=== PATIENT | female | born 2005 | race Caucasian/White ===

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

== ENCOUNTER 2024-01-15 09:34 | Outpatient (CLI) | payer OTHER, SELFPAY ==
--- NOTE | 2024-01-15 09:43 | CA_ITS ---
APPROVED REPORT EXAM: Comprehensive 2D, Doppler, and color-flow Echocardiogram Implementation Director: Cierra Ramirez RDCS Ht: 5 ft 2 in Wt: 195lbs BSA: 1.89 BP: 128/71 mmHg Indications: PALPS,DIZZINESS,SOA 2D Dimensions Left Atrium 2.79 cm F: 2.7 - 3.8 EF AP4 61.00 % LVOT 1.83 cm (M/F) 1.5-2.5 GL Strain -24.6 % M-Mode Dimensions RVDd 1.07 cm (0.9-2.6) LVDd 5.56 cm (3.5-5.7) Ao Diam 2.32 cm (2.0-3.7) LVDs 3.83 cm (3.5-5.7) IVSd 0.75 cm (0.6-1.1) PWd 0.88 cm (0.6-1.1) EF (Teich) 58.30% FS 31.10% EDV (Teich) 151.20 mL ESV (Teich) 63.10 mL LV Diastology E Decel Time 203 (160-240 msec) E/A Ratio 1.5 MED E' 12.4 (>= 7 cm/sec) E'/MED E' Ratio 7.14 (<= 14) LAT E' 13.4 (>= 10 cm/sec) E/LAT E' Ratio 6.60 (<= 14) Mitral Valve MV E Max Mono. 88.0 (40-130 cm/s) MV A Velocity 58.0 (40-130 cm/s) E/A Ratio 1.52 MV Decel. Time 203 (160-240 ms) Left Ventricle The left ventricle is normal size. The left ventricular systolic function is normal. The left ventricular ejection fraction is within the normal range. There is normal left ventricular wall thickness. There is normal LV segmental wall motion. The left ventricular diastolic function is normal. LVEF is 55%. Right Ventricle The right ventricle is normal size. The right ventricular systolic function is normal. Atria The left atrium size is normal. The right atrium size is normal. There is no Doppler evidence of interatrial shunt. Aortic Valve The aortic valve opens well. There is no aortic valvular stenosis. No aortic regurgitation is present. Mitral Valve The mitral valve is normal in structure. No evidence of mitral valve stenosis. There is no mitral valve regurgitation noted. Tricuspid Valve Tricuspid valve is grossly normal in structure and function. Trace tricuspid regurgitation. There is insufficient TR jet to estimate RVSP. Pulmonic Valve The pulmonary valve is normal in structure. Trace pulmonic regurgitation. Great Vessels The aortic root is normal in size. The ascending aorta is not well visualized. IVC is normal in size and collapses >50% with inspiration. Pericardium There is no pericardial effusion. Other Information Study Quality: Adequate Conclusion Normal biventricular systolic function. No significant valvular stenosis or regurgitation. Electronically signed by : Elli Tobin MD 01/18/2024 12:28:23
== END 2024-01-15 23:59 | disposition home or self-care (01) ==
LOC: RT 09:35
PROVIDERS: PCP Nurse Practitioner Family; Visit Provider Nurse Practitioner Family
DX: R00.2 Palpitations (principal); R42 Dizziness and giddiness; R06.09 Other forms of dyspnea
CPT/HCPCS: 93270; 93272; 93306

== ENCOUNTER 2024-12-17 11:44 | Outpatient (CLI) | payer OTHER, SELFPAY ==
--- OUTSIDE RECORDS SUMMARY | 2024-12-17 11:46 | XMS_ITS | Clinical Summary ---
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 20 Palpitations 02/06/2020 Generalized anxiety disorder 06/27/2018 Mild depression 06/27/2018 Family History Medical History Relation Name Comments Anxiety disorder Father Lung cancer Paternal Grandfather Relation Name Status Comments Father Paternal Grandfather Social History Tobacco Use Types Packs/Day Years Used Date Smoking Tobacco: Passive Smo ke Exposure - Never Smoker Comments Unknown Sex and Gender Information Value Date Recorded Sex Assigned at Not on file Legal Sex Female 8:53 PM EDT Gender Identity Not on file Sexual Orientation Not on file Last Filed Vital Signs Vital Sign Reading Time Taken Comments Blood Pressure 102/68 02/12/2020 3:25 PM EDT Pulse 56 02/12/2020 3:25 PM EDT Temperature 36.8 C (98.2 F) 07/25/2018 3:01 PM EDT Respiratory Rate 24 02/12/2020 3:25 PM EDT Oxygen Saturation - - Inhaled Oxygen Concentration - - Weight 74.1 kg (163 lb 5.8 oz) 02/12/2020 3:25 P M EDT Height 158.3 cm (5' 2.32 ) 02/12/2020 3:25 PM ED T Body Mass Index 29.57 02/12/2020 3:25 PM EDT Plan of Treatment Health Maintenance Due Date Last Done Comments [facility]-Depression Screening 2004 [facility]-Infant/Child/Adol SDOH Screenings 2004 HPV Vaccines (1 - 3-dose series) 2019 [facility]- SDOH Screenings 2022 [facility]-Adult SDOH Screenings 2022 [facility]-Hepatitis B Vaccines (1 of 3 - 19+ 3-dose series) 2023 [id number] Vaccine (3 - 2023-25 season) 2024 01/05/2021, 12/15/2020 [facility]-Influenza Vaccine (#1) 2025 [facility]-DTaP,Tdap,and Td Vaccines (2 - Td or Tdap) 11/19/2025 11/20/2015 [facility]-Zoster Vaccines (1 of 2) 2054, 05/16/2005 [facility]-Varicella Vaccines Completed 9, 05/16/2005 [facility]-Hepatitis A Vaccines Completed 019, 11/17/2017 [facility]-HIB Vaccines Aged Out No longer e ligible based on patient's age to complete this topic [facility]-IPV Vaccines Aged Out No longer e ligible based on patient's age to complete this topic [facility]-Pneumococcal Vaccine: Pediatrics (0 to 5 Years) and At-Risk Patients (6 to 49 Years) Aged Out No longer eligible b ased on patient's age to complete this topic [facility]-Rotavirus Vaccines Aged Out No lo nger eligible based on patient's age to complete this topic Insurance [facility] Care Teams Yard Worker Relationship Specialty Start Date End Date Radha Barrera, INFORMATICS NURSE [address] [facility] [address] [place] [address] PCP - General 03/17/22
== END 2024-12-17 23:59 | disposition home or self-care (01) ==
LOC: LAB 11:45
PROVIDERS: PCP Nurse Practitioner Family; Visit Provider Nurse Practitioner Family
DX: Z00.00 Encounter for general adult medical examination without abnormal findings (principal); R53.81 Other malaise; R00.2 Palpitations

== ENCOUNTER 2024-12-18 09:27 | Outpatient (CLI) | payer OTHER, SELFPAY ==
--- OUTSIDE RECORDS SUMMARY | 2024-12-18 09:34 | XMS_ITS | Clinical Summary ---
Author Organization Healthcare Address [address] [place] [address] Care Team Providers Care Presiding Judge Name Role Phone Radha Barrera WOOD BORING MACHINE OPERATOR Primary Care Provider [phone] Active Problems Problem Noted Date Diagnosed Date [...] of 3 - 19+ 3-dose series) 2023 [id number] Vaccine (3 - 2023-25 season) 2024 01/05/2021, [...] patient's age to complete this topic Insurance [facility] Care Teams Presiding Judge Relationship Specialty Start Date End Date Radha Barrera, WOOD BORING MACHINE OPERATOR [address] [facility] [address] [place] [address] PCP - General 03/17/22
[2024-12-18 10:07] LABS: Hematocrit 40.2 % (37.0-47.0); Hemoglobin 13.3 g/dL (12.2-16.2); Immature Granulocytes % 0.2 %; Mean Corpuscular HGB Conc 33.1 g/dL (31.8-35.4); Mean Corpuscular Hemoglobin 29.1 pg (27.0-31.2); Mean Corpuscular Volume 88.0 fl (81-99); Nucleated Red Blood Cells % 0 %; Platelet Count 345 K/mm3 (142-424); Red Blood Count 4.57 M/mm3 (4.20-5.40); Red Cell Distribution Width-SD 38.4 fL; White Blood Count 8.7 K/mm3 (4.5-13.0)
[2024-12-18 10:48] LABS: Albumin Level 3.9 g/dl (3.5-5.0); Chloride 104 mmol/L (98-107); Sodium 137 mmol/L (136-145)
[2024-12-18 10:49] LABS: Hemoglobin A1C 4.7 % (4.0-6.0); Potassium 4.2 mmoL/L (3.5-5.1)
[2024-12-18 10:51] LABS: Alanine Aminotransferase 47 U/L (12-78); Albumin/Globulin Ratio 1.4 (1.1-1.8); Alkaline Phosphatase 92 U/L (38-126); Anion Gap 12.2 mEq/L (5-15); Aspartate Amino Transferase 38 U/L (14-36); Bilirubin,Total 0.4 mg/dl (0.2-1.3); Blood Urea Nitrogen 14 mg/dl (7-17); Carbon Dioxide 25 mmol/L (22.0-30.0); Cholesterol 192 mg/dl (140-200); Creatinine,Serum 0.80 mg/dl (0.52-1.04); Estimated Glomerular Filt Rate 91 ml/min (>60); GFR (African American) 111 ML/MIN (>60); Globulin 2.8 g/dL (1.3-3.2); Total Protein,Serum 6.7 g/dl (6.3-8.2); Triglycerides 75 mg/dl (30-150)
[2024-12-18 10:52] LABS: Calcium 9.1 mg/dl (8.4-10.2); Glucose 90 mg/dl (74-100); HDL Cholesterol 72 mg/dl (40-60); Iron 83 ug/dL (37-170); Magnesium 1.9 mg/dl (1.6-2.3)
[2024-12-18 11:01] LABS: Total Iron Binding Capacity 275 ug/dL (265-497)
[2024-12-18 11:13] LABS: Free Thyroxine Index 2.7 ug/dL (5.93-13.13); T4 (Thyroxine) 8.1 ug/dl (5.53-11.0); Triiodothryronine (T3) Uptake 33 % (23.5-40.5)
[2024-12-18 11:14] LABS: 25-OH Vitamin D, Total 24.7 ng/mL (30-100)
[2024-12-18 11:15] LABS: Free T4 (Free Thyroxine) 1.13 ng/dl (0.78-2.19)
[2024-12-18 11:26] LABS: Thyroid Stimulating Hormone 2.76 uIU/mL (0.465-4.68)
[2024-12-18 11:27] LABS: Thyroid Stimulating Hormone 2.58 uIU/mL (0.465-4.68)
[2024-12-18 11:30] LABS: Ferritin 48.3 ng/ml (6.24-137)
[2024-12-18 11:48] LABS: Vitamin B12 855 pg/mL (239-931)
[2024-12-18 12:12] LABS: Folate 6.39 ng/mL
== END 2024-12-18 23:59 | disposition home or self-care (01) ==
LOC: LAB 09:27
PROVIDERS: PCP Nurse Practitioner Family; Visit Provider Nurse Practitioner Family
DX: Z00.00 Encounter for general adult medical examination without abnormal findings (principal); F41.1 Generalized anxiety disorder; F33.1 Major depressive disorder, recurrent, moderate; R42 Dizziness and giddiness; R00.2 Palpitations
CPT/HCPCS: 36415; 80053; 80061; 82306; 82533; 82607; 82728; 82746; 83036; 83540; 83550; 83735; 84436; 84439; 84443; 84479; 85025